=== PATIENT | female | born 1955 | race Caucasian/White ===

== ENCOUNTER → 2017-02-20 | Outpatient (CLI) | payer OTHER ==
[~2017-02-20] MED LIST: CLCX200C PO; ESTR10TA VG; OMEP20CA12 PO; PNT40TEC PO; PRX10T PO; ROSU5TAB PO; VALA500T4 PO; celebrex; crestor; percocet; prilosec
--- NOTE | 2017-02-22 17:38 | Diagnostic Imaging Report ---
Bilateral screening mammogram The current study was also evaluated with a Computer Aided Detection (CAD) system. Indication: Screening. No current complaints stated on the questionnaire. COMPARISON: 02/15/16 Findings: The breasts are composed of a scattered fibroglandular densities. There are scattered benign-appearing calcifications. Allowing for technique and positional differences, no suspicious change is seen. IMPRESSION: No significant change. ACR BI-RADS Category 2: Benign findings. Result letter will be mailed to the patient. Note: At least 10% of breast cancer is not imaged by mammography. Dictated by: Dictated on workstation # [id number]
== END ==
LOC: RAD 11:23
PROVIDERS: ATTEND Obstetrics & Gynecology
DX: Z12.31 Encounter for screening mammogram for malignant neoplasm of breast (principal)
CPT/HCPCS: 77067

== ENCOUNTER → 2018-02-25 | Outpatient (CLI) | payer BC ==
--- NOTE | 2018-02-25 12:23 | Diagnostic Imaging Report ---
INDICATION: Routine screening. COMPARISON: 02/20/2017 and 02/15/2016. TECHNIQUE: 2D and 3D bilateral screening mammography was performed with CAD. FINDINGS: Both breasts are heterogeneously dense, limiting the sensitivity of mammography. The overall parenchymal pattern is stable. There are benign calcifications in both breasts. No mass or malignant appearing microcalcifications are seen. The axillae are unremarkable. IMPRESSION: No mammographic features suspicious for malignancy are identified. ACR BI-RADS Category 2: Benign findings. Result letter will be mailed to the patient. Note: At least 10% of breast cancer is not imaged by mammography. Dictated by: Dictated on workstation # [id number]
== END ==
LOC: RAD 11:10
PROVIDERS: ATTEND Obstetrics & Gynecology
DX: Z12.31 Encounter for screening mammogram for malignant neoplasm of breast (principal)
CPT/HCPCS: 77067

== ENCOUNTER → 2019-04-04 | Outpatient (CLI) | payer BC ==
--- NOTE | 2019-04-07 08:59 | Diagnostic Imaging Report ---
Indication: Routine screening. Comparison is made to prior mammogram 02/25/2018 and 02/20/2017. 2-D and 3-D bilateral screening mammography was performed with CAD. Scattered fibroglandular densities are identified bilaterally. A nodular density in the upper inner aspect of the right breast posterior depth is noted, appears more prominent than prior exams. Distal views are recommended. Scattered benign calcifications in both breasts. No malignant-appearing microcalcifications are seen. The axillae are unremarkable. Impression: BI-RADS category 0. Right breast density. Additional views are recommended for further evaluation. ACR BI-RADS Category 0: Incomplete. (Needs additional imaging evaluation). Result letter will be mailed to the patient. Note: At least 10% of breast cancer is not imaged by mammography. Dictated by: Dictated on workstation # [id number]
== END ==
LOC: RAD 11:26
PROVIDERS: ATTEND Obstetrics & Gynecology
DX: Z12.31 Encounter for screening mammogram for malignant neoplasm of breast (principal)
CPT/HCPCS: 77067

== ENCOUNTER → 2019-04-16 | Outpatient (CLI) | payer BC ==
--- NOTE | 2019-04-16 16:26 | Diagnostic Imaging Report ---
INDICATION: Right breast density. COMPARISON: 04/04/2019. TECHNIQUE: Unilateral right 2D and 3D diagnostic mammography was performed including spot compression CC and ML views as well as conventional 90 degree lateral view. The current study was evaluated with a Computer Aided Detection (CAD) system. FINDINGS: Vague residual density in the upper inner right breast at posterior depth approximately 7 cm from the nipple is noted. Further evaluation with ultrasound is recommended. No suspicious calcifications are seen. IMPRESSION: Ultrasound of the upper inner right breast 7 cm from the nipple is recommended and will be performed today. ACR BI-RADS Category 0: Incomplete. (Needs additional imaging evaluation). Result letter will be mailed to the patient. Note: At least 10% of breast cancer is not imaged by mammography. Dictated by: Dictated on workstation # [id number]
--- NOTE | 2019-04-16 16:39 | Diagnostic Imaging Report ---
INDICATION: Right breast density. This study was performed for further evaluation. COMPARISON: Correlation is made with the screening mammogram from 04/04/2019 as well as the diagnostic mammogram from earlier this same day. FINDINGS: Sonographic interrogation of the upper inner right breast was performed. No sonographic abnormality is identified. No solid or cystic mass is detected. IMPRESSION: No sonographic abnormality is detected. The patient may return to routine annual screening mammography. ACR BI-RADS Category 1: Negative. Dictated by: Dictated on workstation # [id number]
== END ==
LOC: RAD 13:00
PROVIDERS: ATTEND Obstetrics & Gynecology
DX: N63.12 Unspecified lump in the right breast, upper inner quadrant (principal)

== ENCOUNTER → 2020-04-06 | Outpatient (CLI) | payer BC ==
--- NOTE | 2020-04-07 10:37 | Diagnostic Imaging Report ---
EXAMINATION: Digital mammogram bilateral screening with CAD. INDICATION: Screening. COMPARISON: This study was compared to the prior exams of 04/04/2019, 02/25/2018, and 02/20/2017. PERSONAL HISTORY: At this time, there are no current complaints. FINDINGS: The fibroglandular tissue in both breasts is heterogeneously dense. This does limit the sensitivity of this exam. The asymmetric area of increased density in the upper inner aspect of the right breast seen on the previous exams is again evident and does not appear to have changed significantly. There is also an area of architectural distortion in the upper outer aspect of the right breast. I suspect this is a sequela of prior biopsy as this finding also seems stable when compared to the previous studies. There is no primary or secondary sign of malignancy noted. IMPRESSION: There is no evidence for malignancy. ACR BI-RADS Category 1: Negative. Result letter will be mailed to the patient. Note: At least 10% of breast cancer is not imaged by mammography. Dictated by: Dictated on workstation # [id number]
== END ==
LOC: RAD 11:30
PROVIDERS: ATTEND Obstetrics & Gynecology
DX: Z12.31 Encounter for screening mammogram for malignant neoplasm of breast (principal)
CPT/HCPCS: 77063; 77067

== ENCOUNTER → 2021-04-26 | Outpatient (CLI) | payer BC, MEDICARE ==
--- NOTE | 2021-04-26 13:56 | Diagnostic Imaging Report ---
INDICATION: Routine screening. Comparison is made with prior mammogram 04/06/2020 and 04/04/2019. 2-D and 3-D bilateral screening mammography was performed with CAD. Both breasts are heterogeneously dense, limiting the sensitivity of mammography. The breast parenchymal pattern is stable. No new mass or malignant-appearing microcalcifications are seen. There are benign calcifications noted. Axillae are unremarkable. IMPRESSION: BI-RADS Category 2 No mammographic features suspicious for malignancy are identified. ACR BI-RADS Category 2: Benign findings. Result letter will be mailed to the patient. Note: At least 10% of breast cancer is not imaged by mammography. Dictated by: Dictated on workstation # [id number]
== END ==
LOC: RAD 11:23
PROVIDERS: ATTEND Obstetrics & Gynecology
DX: Z12.31 Encounter for screening mammogram for malignant neoplasm of breast (principal)
CPT/HCPCS: 77063; 77067

== ENCOUNTER → 2021-05-17 | Outpatient (CLI) | payer MEDICARE | LOC: LABNPT 06:37 | PROVIDERS: ATTEND Otolaryngology | DX: Z20.822 Contact with and (suspected) exposure to COVID-19 (principal) | CPT/HCPCS: 87635 ==

== ENCOUNTER → 2021-06-22 | Outpatient (CLI) | payer MEDICARE ==
--- NOTE | 2021-06-22 13:17 | Diagnostic Imaging Report ---
INDICATION: Left hip pain. COMPARISON: None. FINDINGS: Two views of the left hip were obtained and show no fractures, dislocations, or other acute bony abnormalities. Joint spaces are well maintained throughout. The soft tissues appear unremarkable. No radiopaque foreign bodies are identified. IMPRESSION: Unremarkable radiographic exam of the left hip. Dictated by: Dictated on workstation # [id number]
== END ==
LOC: RAD 11:20
PROVIDERS: ATTEND Nurse Practitioner Family
DX: M25.552 Pain in left hip (principal)
CPT/HCPCS: 73502

== ENCOUNTER 2021-07-27 11:16 | Outpatient (RCR) | payer MEDICARE, OTHER | END 2021-07-27 12:00 | disposition home or self-care (01) | PROVIDERS: ATTEND Nurse Practitioner Family | DX: S73.192D Other sprain of left hip, subsequent encounter (principal); S70.02XD Contusion of left hip, subsequent encounter; I10 Essential (primary) hypertension; X58.XXXD Exposure to other specified factors, subsequent encounter ==

== ENCOUNTER → 2021-11-07 | Outpatient (CLI) | payer MEDICARE, OTHER | LOC: LABNPT 08:41 | PROVIDERS: ATTEND Otolaryngology | DX: Z20.822 Contact with and (suspected) exposure to COVID-19 (principal) | CPT/HCPCS: 87635 ==

== ENCOUNTER → 2022-09-26 | Outpatient (CLI) | payer MEDICARE, OTHER ==
--- NOTE | 2022-09-26 15:27 | Diagnostic Imaging Report ---
Indication: Routine screening. Comparison is made with prior mammograms 04/26/2021 and 04/06/2020. 2-D and 3-D bilateral screening mammography was performed with CAD. Both breasts are heterogeneously dense, limiting the sensitivity of mammography. Scattered benign calcifications are noted. No mass or malignant-appearing microcalcifications are seen. Axillae are unremarkable. IMPRESSION: BI-RADS Category 2 No mammographic features suspicious for malignancy are identified. ACR BI-RADS Category 2: Benign findings. Result letter will be mailed to the patient. Note: At least 10% of breast cancer is not imaged by mammography. Dictated by: Dictated on workstation # [id number]
== END ==
LOC: RAD 10:54
PROVIDERS: ATTEND Obstetrics & Gynecology
DX: Z12.31 Encounter for screening mammogram for malignant neoplasm of breast (principal)
CPT/HCPCS: 77063; 77067

== ENCOUNTER 2023-06-27 13:01 | Outpatient (RCR) | payer MEDICARE, OTHER | END 2023-07-10 | disposition home or self-care (01) | PROVIDERS: ATTEND Orthopaedic Surgery | DX: M25.551 Pain in right hip (principal); I10 Essential (primary) hypertension ==

== ENCOUNTER 2023-07-20 13:45 | Outpatient (RCR) | payer MEDICARE, OTHER | END 2023-07-20 16:04 | disposition home or self-care (01) | PROVIDERS: ATTEND Orthopaedic Surgery | DX: M25.551 Pain in right hip (principal); I10 Essential (primary) hypertension ==